=== PATIENT | female | born 1990 | race Caucasian/White ===

== ENCOUNTER → 2016-08-07 | Outpatient (CLI) | payer BC ==
[~2016-08-07] MED LIST: ALBUAER2 INH; FLUO20CA36 PO; ONDA4TAB7 SL; SYMIN/8045 INH; [UNRECOGNIZED DRUG - CODE] PO
== END | disposition home or self-care (01) ==
LOC: C.PAPS 10:01
PROVIDERS: ATTEND Obstetrics & Gynecology
DX: Z01.419 Encounter for gynecological examination (general) (routine) without abnormal findings (principal)

== ENCOUNTER → 2017-02-18 | Outpatient (CLI) | payer BC | END | disposition home or self-care (01) | LOC: C.RDSM 11:47 | PROVIDERS: ATTEND Family Medicine Sports Medicine | DX: M54.5 Low back pain (principal); M54.2 Cervicalgia ==

== ENCOUNTER 2017-06-12 20:28 | Emergency (ER) | payer BC ==
[~2017-06-12] VITALS: Ht 167.6 cm; Wt 64.2 kg
[2017-06-12 20:30] VITALS: TEMP 36.4; Ht 167.6 cm; Wt 64.2 kg
[2017-06-12] MEDS ORDERED: ALBUTEROL 0.083% NEBU SOLN 3 ML VIAL INH ONE (20:40)
[2017-06-12] MEDS ORDERED: ALBUT/IPRATROP 3MG/0.5MG NEB 3 ML VIAL ONE (20:43)
[2017-06-12 20:46] VITALS: O2SAT 100
[2017-06-12 21:32] LABS: BASO % 0.4 %; BASO ABS # 0.03 K/uL (0-0.2); COMPLETE YES; EOS % 0.6 %; HEMATOCRIT 36.3 % (37-47); IG% 0.1 %; LYMPH % 38.3 %; LYMPH ABS # 3.16 K/uL (1.2-3.4); MEAN CELL VOLUME 89.4 fL (80-100); MEAN CORPUSCULAR HEMOGLOBIN 31.3 pg (25-34); MEAN PLATELET VOLUME 11.6 fL (7.4-10.4); NEUT % 55.6 %; PLATELET COUNT 191 K/uL (130-400); RED BLOOD COUNT 4.06 M/uL (4.2-5.4); WHITE BLOOD COUNT 8.24 K/uL (4.8-10.8)
[2017-06-12] MEDS ORDERED: LEVOTAB2 PO (21:40)
[2017-06-12] MEDS ORDERED: SNG10 PO (21:40)
[2017-06-12] MEDS ORDERED: ALBU18002 INH (21:40)
--- NOTE | 2017-06-12 21:52 | DIAGNOSTIC IMAGING REPORT ---
TWO VIEW CHEST CLINICAL HISTORY: Dyspnea. FINDINGS: PA and lateral chest radiographs are compared to study dated 05/11/2014. The cardiomediastinal silhouette is unremarkable. The lungs and pleural spaces are clear. There is no pneumothorax. The bony thorax appears intact. IMPRESSION: No active disease in the chest. Electronically signed by: Thiago Zhang M.D. 06/12/2017 9:51 PM Dictated Date/Time: 06/12/2017 9:51 PM
[2017-06-12 21:53] LABS: BUN/CREATININE RATIO 19.3 (10-20); CALCIUM 9.5 mg/dl (8.5-10.1); CREATININE 0.95 mg/dl (0.60-1.20); POTASSIUM 3.7 mmol/L (3.5-5.1)
[2017-06-12 21:56] LABS: CKMB/CK RATIO 1.2 (0-3.0)
[2017-06-12 22:49] VITALS: BP 107/71; PULSE 69; O2SAT 98
--- NOTE | 2017-06-13 00:04 | EMERGENCY ROOM VISIT NOTE ---
History First contact with patient: 20:44 Chief Complaint: RESPIRATORY PROBLEMS Stated Complaint: HARD TIME BREATHING,RIGHT CHEST PAIN,DIZZINESS Nursing Triage Summary: Patient reports that she has been coughing since yesterday. Yesterday patient was coughing up blood. Today patient has been coughing up thick yellow mucus. Patient felt she started having an asthma attack today around 2014 after running on the treadmill. Patient felt chest tightness then began having shortness of breath. She did not have her inhaler with her so she drove to ED. History of asthma. History of Present Illness The patient is a 26 year old female who presents to the Emergency Room with complaints of right-sided chest discomfort, productive cough, hematemesis and shortness of breath. The patient reports that she suspects having an asthma exacerbation while working out this evening. She has a history of exercise- induced asthma that was diagnosed in the ninth grade. Since that time, she reports that her symptoms have been progressively worsening. She has been seen recently by her PCP who is trying to refer her to a wire setter. She does have an appointment scheduled for 07/04/17. The patient has recently completed a course of prednisone, and also takes Symbicort and Singulair, all without any relief. The patient denies any other significant upper respiratory infection symptoms such as runny nose, congestion or sore throat. She denies any pain extending into the back or abdomen. The patient reports that she has not had any other recent workup for her symptoms, and rates her overall discomfort a 5 out of 10. Review of Systems HEENT: Denies dizziness, visual problems, hearing loss, tinnitus. Denies difficulty swallowing or oral lesions. PULMONARY: See history of present illness. CARDIOVASCULAR: Denies palpitations, dyspnea on exertion, orthopnea or peripheral edema. GASTROINTESTINAL: Denies diarrhea, constipation, nausea, vomiting, or abdominal pain. GENITOURINARY: Denies dysuria, frequency, urgency or nocturia. NEUROLOGIC: Denies history of epilepsy, CVA, TIA or chronic headaches. MUSCULOSKELETAL: Denies history of joint tenderness/swelling. SKIN: Denies rashes or lesions. PSYCHIATRIC: Denies history of depression or mental illness. ENDOCRINE: Denies history of diabetes or thyroid disorders. Past Medical/Surgical History Medical Problems: (1) Exercise-induced asthma Surgical Problems: (1) No history of previous surgery Family History Unremarkable Social History Smoking Status: Never Smoker Alcohol Use: occasionally Drug Use: none Marital Status: single Occupation Status: employed Current/Historical Medications Scheduled Budesonide/Formoterol Fumarate (Symbicort 80/4.5 Inhaler), 2 PUFFS INH BID Levonorgestrel & Eth Estradiol (Aviane), 1 TAB PO DAILY Montelukast Sod (Montelukast Sodium), 1 TAB PO DAILY Scheduled PRN Albuterol Sulfate (Proair Respiclick), 2 PUFFS INH QID PRN for Wheezing Physical Exam Vital Signs Date Time Temp Pulse Resp B/P (MAP) Pulse Ox O2 Delivery O2 Flow Rate FiO2 06/12/17 22:49 69 107/71 98 06/12/17 22:05 66 06/12/17 20:46 100 Room Air 06/12/17 20:44 100 Room Air 06/12/17 20:30 36.4 108 26 149/92 99 Room Air Physical Exam CONSTITUTIONAL: Healthy and well nourished. Alert and oriented X 3 with positive affect. She appears in mild to moderate respiratory distress upon presentation. HEENT: Normocephalic, atraumatic. Pupils equal, round and reactive. Ears and nares are clear. No rhinorrhea. OROPHARYNX: Minimal posterior frontal erythema without tonsillar hypertrophy or exudates. Uvula is midline. No angioedema noted. NECK: Full active range of motion without discomfort. No JVD or carotid bruits. RESPIRATORY: Patient has mild end expiratory wheezing, without crackles, rhonchi or stridor. CARDIOVASCULAR: Tachycardic with no murmurs, rubs or gallops. GASTROINTESTINAL: Bowel sounds present in all quadrants. Soft and nontender to palpation. MUSCULOSKELETAL: Full range of motion of all joints without discomfort. INTEGUMENTARY: No rash or other significant dermatologic conditions noted. NEUROLOGIC: No focal neurologic deficits noted. Medical Decision & Procedures ER Provider Diagnostic Interpretation: My interpretation of an ECG shows a normal sinus rhythm of [address] elevation or other conduction abnormalities. My interpretation of a two-view chest x-ray does not show any consolidations, pneumothorax or widened mediastinum. Radiologist report is as follows: TWO VIEW CHEST CLINICAL HISTORY: Dyspnea. FINDINGS: PA and lateral chest radiographs are compared to study dated 05/11/2014. The cardiomediastinal silhouette is unremarkable. The lungs and pleural spaces are clear. There is no pneumothorax. The bony thorax appears intact. IMPRESSION: No active disease in the chest. Laboratory Results 06/12/17 21:10 Red Blood Count 4.06, Mean Corpuscular Volume 89.4, Mean Corpuscular Hemoglobin 31.3, Mean Corpuscular Hemoglobin Concent 35.0, Mean Platelet Volume 11.6, Neutrophils (%) (Auto) 55.6, Lymphocytes (%) (Auto) 38.3, Monocytes (%) (Auto) 5.0, Eosinophils (%) (Auto) 0.6, Basophils (%) (Auto) 0.4, Neutrophils # (Auto) 4.58, Lymphocytes # (Auto) 3.16, Monocytes # (Auto) 0.41, Eosinophils # (Auto) 0.05, Basophils # (Auto) 0.03 06/12/17 21:10 Test 06/12/17 21:10 06/12/17 21:15 White Blood Count 8.24 K/uL (4.8-10.8) Red Blood Count 4.06 M/uL (4.2-5.4) Hemoglobin 12.7 g/dL (12.0-16.0) Hematocrit 36.3 % (37-47) Mean Corpuscular Volume 89.4 fL (80-100) Mean Corpuscular Hemoglobin 31.3 pg (25-34) Mean Corpuscular Hemoglobin Concent 35.0 g/dl (32-36) Platelet Count 191 K/uL (130-400) Mean Platelet Volume 11.6 fL (7.4-10.4) Neutrophils (%) (Auto) 55.6 % Lymphocytes (%) (Auto) 38.3 % Monocytes (%) (Auto) 5.0 % Eosinophils (%) (Auto) 0.6 % Basophils (%) (Auto) 0.4 % Neutrophils # (Auto) 4.58 K/uL (1.4-6.5) Lymphocytes # (Auto) 3.16 K/uL (1.2-3.4) Monocytes # (Auto) 0.41 K/uL (0.11-0.59) Eosinophils # (Auto) 0.05 K/uL (0-0.5) Basophils # (Auto) 0.03 K/uL (0-0.2) RDW Standard Deviation 39.9 fL (36.4-46.3) RDW Coefficient of Variation 12.3 % (11.5-14.5) Immature Granulocyte % (Auto) 0.1 % Immature Granulocyte # (Auto) 0.01 K/uL (0.00-0.02) Prothrombin Time 10.0 SECONDS (9.0-12.0) Prothromb Time International Ratio 1.0 (0.9-1.1) Activated Partial Thromboplast Time 25.2 SECONDS (21.0-31.0) Partial Thromboplastin Ratio 1.0 D-Dimer 270 ug/L FEU (0-500) Anion Gap 7.0 mmol/L (3-11) Est Creatinine Clear Calc Drug Dose 85.4 ml/min Estimated GFR () 97.2 Estimated GFR (Non- 83.8 BUN/Creatinine Ratio 19.3 (10-20) Calcium Level 9.5 mg/dl (8.5-10.1) Total Bilirubin 0.2 mg/dl (0.2-1) Aspartate Amino Transf (AST/SGOT) 17 U/L (15-37) Alanine Aminotransferase (ALT/SGPT) 20 U/L (12-78) Alkaline Phosphatase 65 U/L (45-117) Total Creatine Kinase 104 U/L (26-192) Creatine Kinase MB 1.2 ng/ml (0.5-3.6) Creatine Kinase MB Ratio 1.2 (0-3.0) Troponin I < 0.015 ng/ml (0-0.045) Total Protein 8.0 gm/dl (6.4-8.2) Albumin 4.0 gm/dl (3.4-5.0) Globulin 4.0 gm/dl (2.5-4.0) Albumin/Globulin Ratio 1.0 (0.9-2) Bedside D-Dimer 79 ng/mlFEU (0-450) The above labs were reviewed and were grossly normal, including d-dimer and troponin. Medications Administered Medications (Trade) Dose Ordered Sig/Rosemary Route Start Time Stop Time Status Last Admin Dose Admin Albuterol Sulfate (Ventolin 0.083% 2.5MG/3ML Neb) 2.5 mg STK-MED ONCE INH 12/6/17 20:40 06/12/17 20:41 DC 06/12/17 20:43 2.5 MG ED Course Patient history and physical exam were performed. Nurse's notes were reviewed. Vital signs were reviewed and normal. Before I examined the patient, nursing staff approached me and asked if the patient could be administered an albuterol DuoNeb treatment. Brief history was provided, indicated the patient was exhibiting asthma symptoms after working out. At the time of my presentation, the patient had just completed her DuoNeb treatment and reported feeling significantly better. After discussing her history and complaint of progressively worsening asthma symptoms, I did express my concern for other possibilities, including pulmonary embolus. I did suggest additional workup, and the patient was in agreement. IV access was established, and labs were drawn. An ECG and two-view chest x-ray were normal. Review of labs shows a normal troponin, d-dimer, CBC, partial renal profile and coagulation studies. The patient denied any shortness of breath or other symptoms at the time of discharge. The case was also discussed with Dr. Vinson, ED attending physician, who agrees with current workup and outpatient plan of care. I did encourage the patient to contact her PCP to advise them of her ED evaluation. Hopefully she can get into see pulmonology a little sooner than her scheduled appointment. The patient was dispensed an AeroChamber to make her albuterol inhaler treatment more effective. She was encouraged to continue with albuterol 2 puffs every 4 hours as needed. She is welcome to return to the emergency department for any recurrent or worsening symptoms. The patient was happy with plan of care, and voiced understanding of all discharge instructions. Medical Decision Patient presents to the emergency department with complaint of shortness of breath and wheezing after exercising tonight. The patient does have a 10 year history of exercise-induced asthma, but has had recent worsening asthma symptoms that have not responded to medication management. She is currently awaiting pulmonology evaluation. I did elect to perform additional workup today which did not suggest pneumothorax, pulmonary embolus or other acute cardiopulmonary etiologies. The patient responded nicely to a DuoNeb breathing treatment. At this point, I do not feel that reinstituting corticosteroids treatment or hospitalist evaluation is necessary. The patient will return for any worsening symptoms. Medication Reconcilliation Current Medication List: was personally reviewed by me Blood Pressure Screening Patient's blood pressure: Normal blood pressure Impression Primary Impression: Exercise-induced asthma with acute exacerbation Departure Information Referrals Angelique Hogue D.O. (PCP) Patient Instructions My [facility]
== END 2017-06-12 22:52 | disposition home or self-care (01) ==
LOC: C.EDB 20:29 → C.EDD 22:52
DX: J45.901 Unspecified asthma with (acute) exacerbation (principal)

== ENCOUNTER → 2017-08-13 | Outpatient (CLI) | payer OTHER ==
[~2017-08-13] MED LIST changes: +ALBU18002 INH; -ALBUAER2 INH; -FLUO20CA36 PO; +LEVOTAB2 PO; -ONDA4TAB7 SL; +SNG10 PO; -[UNRECOGNIZED DRUG - CODE] PO
--- NOTE | 2017-08-13 14:20 | DIAGNOSTIC IMAGING REPORT ---
SINUSES MIN 3 VIEWS ROUTINE CLINICAL HISTORY: 26 years-old Female presenting with J30.9 Allergic rhinitis. TECHNIQUE: 4 views of the sinuses were obtained. COMPARISON: None. FINDINGS: A left nasal sinuses evident. Bony nasal septum midline. Paranasal sinuses and mastoid air cells clear. Bony orbits intact. Visualized portion of the calvarium intact. IMPRESSION: No radiographic evidence of acute sinusitis. Electronically signed by: Flaquito Aquino M.D. 08/13/2017 2:19 PM Dictated Date/Time: 08/13/2017 2:18 PM
[2017-08-13 14:54] LABS: BASO % 0.5 %; BASO ABS # 0.03 K/uL (0-0.2); EOS % 0.9 %; EOS ABS # 0.05 K/uL (0-0.5); HEMATOCRIT 36.5 % (37-47); HEMOGLOBIN 12.8 g/dL (12.0-16.0); IG# 0.01 K/uL (0.00-0.02); LYMPH % 36.2 %; LYMPH ABS # 2.08 K/uL (1.2-3.4); MEAN CELL VOLUME 91.3 fL (80-100); MEAN CORPUSCULAR HGB CONC 35.1 g/dl (32-36); MEAN PLATELET VOLUME 11.5 fL (7.4-10.4); MONO % 5.7 %; MONO ABS # 0.33 K/uL (0.11-0.59); NEUT % 56.5 %; NEUT ABS # 3.25 K/uL (1.4-6.5); PLATELET COUNT 213 K/uL (130-400); RED CELL DISTRIBUTION WIDTH CV 12.5 % (11.5-14.5); RED CELL DISTRIBUTION WIDTH SD 41.7 fL (36.4-46.3); WHITE BLOOD COUNT 5.75 K/uL (4.8-10.8)
== END | disposition home or self-care (01) ==
LOC: C.LAB 13:32
PROVIDERS: ATTEND Internal Medicine Pulmonary Disease
DX: J30.9 Allergic rhinitis, unspecified (principal); R40.0 Somnolence; J45.990 Exercise induced bronchospasm